=== PATIENT | female | born 1985 | race Caucasian/White ===

== ENCOUNTER 2016-07-07 05:18 | Inpatient (IN) | payer MEDICAID ==
[~2016-07-07] VITALS: Ht 154.9 cm; Wt 100.8 kg
[~2016-07-07 05:18] MED LIST: PRENAT PO
[2016-07-07 05:23] VITALS: Ht 154.9 cm; Wt 100.8 kg
[2016-07-07 05:24] VITALS: BP 140/73; PULSE 55; RESP 20
[2016-07-07] MEDS ORDERED: LACTATED RINGER'S 1,000 ML IV SCH (05:39)
[2016-07-07] MEDS ORDERED: BUTORPHANOL 2 MG INJ IV PRN (06:00)
[2016-07-07] MEDS ORDERED: LIDOCAINE 1% (MPF) 30 ML INJ INJ PRN (06:00)
[2016-07-07] MEDS ORDERED: METHYLERGONOVINE 0.2 MG INJ IM PRN ×2 (06:00→19:30)
[2016-07-07] MEDS ORDERED: OXYTOCIN 30 UNITS/LR 500 ML IV PRN ×2 (06:00→19:30)
[2016-07-07] MEDS ORDERED: CARBOPROST 250 MCG INJ IM PRN ×2 (06:00→19:30)
[2016-07-07] MEDS ORDERED: MISOPROSTOL 200 MCG TAB PR PRN ×2 (06:00→19:30)
[2016-07-07] MEDS ORDERED: LACTATED RINGER'S 1,000 ML IV PRN (06:00)
[2016-07-07] MEDS ORDERED: OXYTOCIN 30 UNITS/LR 500 ML IV SCH ×2 (06:00)
[2016-07-07] MEDS ORDERED: AMPICILLIN 2 GM/NS (PMX) 100 ML IV ONE (06:00)
--- NOTE | 2016-07-07 06:02 | TRIAGE ---
OB Triage Datetime Report Generated by CPN: 07/07/2016 06:02 Datetime: 07/07/2016 05:54 Labor Evaluation Frequency: 1-4.5 Monitor Mode: External Duration (sec)2399: 40-80 Quality: Mild Pattern: Normal: <= 5 Contractions in 10 Minutes Resting Tone Wedron: Relaxed Heart Rate FHR Baseline Rate: 135 Monitor Mode: External US Variability: Moderate 6-25 bpm Accelerations: 15X15 Decelerations: None Category: Category I Datetime: 07/07/2016 05:49 Time of Arrival: 07/07/2016 04:59 EGA: 39.4 Arrived By: Ambulatory Arrived From: Home Chief Complaint: UC'S AND SROM Movement: Present Contractions: Occasional Time Contractions Began: 07/07/2016 03:10 Contractions: Q10MIN Rupture of Membranes: Ruptured Vaginal Bleeding: None Vaginal Discharge: Denies Recent Sexual Intercouse: Denies Abdominal Trauma: Not Applicable Patient Complaints: Contractions Time Provider Notified: 07/07/2016 05:33 Provider Notified: BELA Initial Plan: EFM, STERILE SPEC, NITRAZINE, ROM+, Datetime: 07/07/2016 05:20 Stage of : OB Triage Assessment Type: Triage Maternal Assessment Level of Consciousness: Fully Conscious DTR's/Clonus: DTRs 2+; No Clonus Headache: Denies Blurred Vision: No Respiratory Effort: Unlabored; Regular Rhythm; Equal Expansion Breath Sounds, Left: Clear and Equal Breath Sounds, Right: Clear and Equal Nausea/Vomiting: Denies RUQ Epigastric Pain: Denies Facial Edema: None Fall Risk Assessment History of Falling: (0) No Secondary Diagnosis: (0) No Ambulatory Aid: (0) Bedrest/Nurse Assist IV Therapy: (0) No Gait: (0) Normal/Bedrest/Immobile Mental Status: (0) Oriented to Own Ability Fall Score: 0 Fall Risk Score Definition: No Risk: No action required Vaginal Exam Dilatation (cms): 3.0 Effacement (%): 80 Station: -2 Exam By: THOMAS Rae Cervix, Consistency: Soft Cervix, Position: Midposition Datetime: 07/07/2016 05:18 Stage of : OB Triage Membrane Status: Ruptured Membranes Ruptured Date/Time: 07/07/2016 03:10 Membranes Rupture Method: Spontaneous Amniotic Fluid Color: Clear Amniotic Fluid Amount: Small Amniotic Fluid Odor: Normal Vaginal Bleeding: None Pool: Positive Nitrazine: Positive ROM Test Kit: Collected Datetime: 07/07/2016 05:16 Stage of : OB Triage Temperature Route: Oral Pain Assessment Pain Scale: 4 Pain Presence: Intermittent Pain Type: Cramping; Contraction Pain Location: Abdomen; Back Pain Relief Measures: Comfort Measures Datetime: 07/07/2016 05:12 Stage of : OB Triage Monitor Mode: External Contraction Comments: Wedron applied Heart Rate FHR Baseline Rate: 150 Monitor Mode: External US Comments: EFM applied Datetime: 04/27/2016 19:40 Fall Score: 0 Fall Risk Score Definition: No Risk: No action required Datetime: 04/27/2016 15:29 Fall Score: 0 Fall Risk Score Definition: No Risk: No action required Datetime: 04/27/2016 15:28 EGA: 29.3
[2016-07-07 07:46] LABS: BASOPHILS % 0.4 % (0.0-2.0); EOSINOPHILS % 0.3 % (0.0-7.0); HEMATOCRIT 40.8 % (37.0-47.0); HEMOGLOBIN 13.8 g/dl (12.0-16.0); LYMPHOCYTES # 1.5 10^3/ul (0.8-2.9); LYMPHOCYTES % 19.3 % (15.0-51.0); MEAN CORPUSCULAR HGB CONC 33.9 g/dl (32.0-37.0); MEAN CORPUSCULAR VOLUME 91.5 fl (82.0-101.0); MONOCYTE # 0.6 10^3/ul (0.3-0.9); NEUTROPHIL # 5.5 10^3/ul (1.6-7.5); PLATELET COUNT 191 10^3/UL (140-440); RED BLOOD COUNT 4.46 10^6/ul (4.20-5.40); RED CELL DISTRIBUTION WIDTH 13.8 % (11.5-14.5); UNCORRECTED WBC 7.7 10^3/ul (4.8-10.8); WHITE BLOOD COUNT 7.7 10^3/ul (4.8-10.8)
[2016-07-07 07:52] LABS: CONDITION 1
[2016-07-07 08:05] LABS: INR 0.82; PROTIME 11.3 Sec (12.2-14.2); PT RATIO 0.9
[2016-07-07 08:06] LABS: PARTIAL THROMBOPLASTIN TIME 27.5 Sec (25.0-35.0)
[2016-07-07] MEDS ORDERED: AMPICILLIN 1 GM/NS (PMX) 50 ML IV SCH (10:00)
[2016-07-07] MEDS ORDERED: FENTAnyl 50 MCG/ML VIAL ONE (17:05)
[2016-07-07] MEDS ORDERED: PROPOFOL 20 ML ONE ×2 (17:05→17:28)
[2016-07-07] MEDS ORDERED: DIPHENHYDRAMINE 50 MG INJ IV PRN ×2 (18:00→19:30)
[2016-07-07] MEDS ORDERED: ONDANSETRON 4 MG INJ IV PRN ×2 (18:00→19:30)
[2016-07-07] MEDS ORDERED: HYDROmorphONE (0.2 MG/ML) 10ML SYG IV PRN ×3 (18:00)
[2016-07-07] MEDS ORDERED: OXYCODONE/ACETAMINOPHEN (5/325) TAB PO PRN ×2 (18:00)
[2016-07-07 18:22] LABS: BASOPHILS % 0.1 % (0.0-2.0); HEMATOCRIT 34.5 % (37.0-47.0); HEMOGLOBIN 11.9 g/dl (12.0-16.0); LYMPHOCYTES # 0.4 10^3/ul (0.8-2.9); LYMPHOCYTES % 2.7 % (15.0-51.0); MEAN CORPUSCULAR HEMOGLOBIN 31.2 pg (29.0-33.0); MEAN CORPUSCULAR HGB CONC 34.3 g/dl (32.0-37.0); MEAN CORPUSCULAR VOLUME 90.8 fl (82.0-101.0); MEAN PLATELET VOLUME 11.8 fl (7.4-10.4); MONOCYTE # 0.6 10^3/ul (0.3-0.9); MONOCYTES % 3.7 % (0.0-11.0); NEUTROPHIL # 14.7 10^3/ul (1.6-7.5); NEUTROPHILS % 93.5 % (39.0-77.0); PLATELET COUNT 163 10^3/UL (140-440); RED CELL DISTRIBUTION WIDTH 14.1 % (11.5-14.5); UNCORRECTED WBC 15.7 10^3/ul (4.8-10.8); WHITE BLOOD COUNT 15.7 10^3/ul (4.8-10.8)
[2016-07-07 18:24] LABS: CONDITION 1; LH ANALYZER COMMENTS 1; SUSPECT 1
--- NOTE | 2016-07-07 18:54 | LDN ---
Date/Time of Note Date/Time of Note DATE: 07/07/16 TIME: 18:50 Delivery Summary Pt pushed without anesthesia to an of a liveborn female weighing 3670g with Apgars of 9 and 9 at 1 and 5 min respectively. Easy delivery of the head followed by the anterior and posterior shoulders and the remainder of the body. The was vigorous and placed on mother's abdomen and bulb suctioned. Cord clamping was delayed. The pt received standard IV Pitocin. The cord was doubly clamped and cut. Cord blood was collected. An intact 3VC placenta delivered spontaneously. Fundus was noted to be firm. Inspection of the vagina and perineum revealed an extensive R vaginal laceration involving the R labia and the R lateral vaginal wall in addition to a 2nd degree perineal laceration. Given the extent of the R vaginal wall laceration and poor lighting and pt pain control in the LDR, the decision was made to proceed to the OR for repair. Vagina was packed with lap sponge for transfer. Anesthesia and Nursing teams were notified. See Operative Note. EBL 300ml. Placenta Delivered: Spontaneously Meconium: none Perineum intact?: No Perineal laceration: 2 Anesthesia type: None Estimated blood loss: 300 Sponge & Needle done & correct: Yes All needle counts correct: Yes Any foreign bodies felt in the: No Problems: Infant Delivery Information Sex Infant Sex: female Apgars 1 Minute: 9 5 Minute: 9 Suctioning Nose & mouth suctioned at gorge: No Delee suction performed: No Umbilical Cord Umbilical cord with: 3 Vessels Cord presentations: no nuchal cord Cord Blood was obtained: Yes Mother & Baby Disposition Disposition Mom & Baby to Maternity; Good: Yes (following repair of lacerations in the OR) Baby to NICU: No JANET DEL VALLE MD Jul 07, 2016 18:53
--- NOTE | 2016-07-07 19:10 | OPR ---
Operative Report Planned Procedure Free Text/Dictation Pt was taken to the OR with an IV in place following obtaining written consent for the procedure. Pt received IV Propofol for conscious sedation for repair. The patient was positioned in dorsal lithotomy position, the lap sponge was removed from the vagina and a walden catheter was inserted under sterile conditions. Inspection of the vagina and perineum confirmed a R deep sulcal laceration with extension to the base of the R labia. A full length R labial laceration and a second degree perineal laceration were noted. After adequate anesthesia had been administered, the sulcal tear was first repaired using 2-0 Chromic and Vicryl suture in the standard fashion. Hemostasis was obtained. The R labial laceration was then repaired with 3-0 Vicryl suture and finally the 2nd degree laceration was repaired with 3-0 Chromic suture. A rectal exam was performed following the repairs and no suture was palpated and no defect was appreciated. Brisk vaginal bleeding was noted to be coming from the cervix. The fundus remained firm. A bimanual exam revealed an atonic CAT with clots. The clots were evacuated and pt received Methergine 200mcg IM x1 with improvement in bleeding. Once hemostasis from all surgical beds was confirmed and no hematoma formation was palpated or visualized, the vagina was packed with vaginal packing x1 which will remain in situ. The walden also will remain in situ until removal of the vaginal packing. The patient was returned to dorsal supine position. The patient tolerated the procedure well and was taken to the LDR for recovery. EBL in OR 350ml. Total EBL for delivery and repair 650ml. UOP 275ml clear urine. IVF 1L Procedure date Jul 07, 2016 Procedure(s) Vaginal Laceration Repair Performed by: JANET DEL VALLE MD Anesthesiologist: GRACIE MUÑOZ MD Pre-procedure diagnosis 1) S/p without anesthesia 2) Extensive Laceration of the Right Vaginal Wall Anesthesia Type: MAC Post-Procedure Findings: R deep sulcal laceration, R labial laceration, 2nd degree perineal laceration Specimen removed: No Complications: None Pt Condition post procedure: stable Disposition: other (LDR) Physician Certification I, the undersigned physician, hereby certify that I have discussed the procedure described in this consent form with this patient (or the patient's legal used equipment sales representative), including: * The risk and benefits of the procedure; * Any adverse reactions that may reasonably be expected to occur; * Any alternative efficacious methods of treatment which may be medically viable ; * The potential problems that may occur during recuperation; I further certify that the patient/legally responsible person was encouraged to ask question and that all questions were answered. JANET DEL VALLE MD Jul 07, 2016 19:04
--- NOTE | 2016-07-07 19:15 | RADRPT ---
PROCEDURE: US OB. CLINICAL INDICATION: . Contractions. Labor. TECHNIQUE: Multiple transabdominal sonographic images of the pelvis were obtained. COMPARISON: 04/27/2016. FINDINGS: There is a single live intrauterine in cephalic presentation with heart motion of 12 9 beats per minute. Amniotic fluid amount appears lobe. Measurements were made in order to determine age. The results are as follows: BPD = * HC = * AC = 35.68 cm, 39 weeks 4 days FL = 7.43 cm, 38 weeks 0 days * cannot be assessed due to positioning. EFW: 3705 g, 8 pounds 3 ounces, 66.5% IMPRESSION: Single live intrauterine in cephalic presentation measuring 38-week 6 days using current u ltrasound measurements with an estimated date of delivery of 07/15/2016. Estimated weight, as above. RPTAT: PP .Dorys Snow MD, MD Date Time Electronically viewed and signed by .Dorys Snow MD, on 07/07/2016 19:15 .T/
[2016-07-07] MEDS ORDERED: LANOLIN 7 GM TUBE TOP PRN (19:30)
[2016-07-07] MEDS ORDERED: BENZOCAINE 20% 56 ML SPRAY TOP PRN (19:30)
[2016-07-07] MEDS ORDERED: ACETAMINOPHEN 325 MG TAB PO PRN (19:30)
[2016-07-07] MEDS ORDERED: DIBUCAINE 1% 30 GM OINT PR PRN (19:30)
[2016-07-07] MEDS ORDERED: SENNA/DOCUSATE NA (8.6MG/50MG) TAB PO PRN (19:30)
[2016-07-07] MEDS: LACTATED RINGER'S 1,000 ML IV* SCH (19:38)
[2016-07-07] MEDS ORDERED: ACETAMINOPHEN/CODEINE #3 TAB PO PRN (20:00)
[2016-07-07 20:45] VITALS: BP 114/60; PULSE 82; RESP 20
[2016-07-07 21:15] VITALS: BP 116/66; PULSE 82; RESP 20
[2016-07-08] VITALS: BP 121/66; PULSE 92; RESP 20
[2016-07-08] MEDS: IBUPROFEN 600 MG TAB PO SCH ×4 (00:21→18:00)
[2016-07-08 04:00] VITALS: BP 99/60; PULSE 98; RESP 20
[2016-07-08] MEDS: LACTATED RINGER'S 1,000 ML IV* SCH (05:00)
[2016-07-08 07:30] VITALS: BP 88/53; PULSE 88; RESP 20
--- NOTE | 2016-07-08 07:45 | QN ---
Documentation Comment Vaginal packing removed. Minimal bleeding. Pena to be d/c'd this morning. JANET DEL VALLE MD Jul 08, 2016 07:45
[2016-07-08 08:21] LABS: BASOPHILS % 0.3 % (0.0-2.0); EOSINOPHILS % 0.1 % (0.0-7.0); HEMATOCRIT 27.6 % (37.0-47.0); HEMOGLOBIN 9.4 g/dl (12.0-16.0); LYMPHOCYTES # 1.5 10^3/ul (0.8-2.9); LYMPHOCYTES % 12.1 % (15.0-51.0); MEAN CORPUSCULAR HEMOGLOBIN 31.6 pg (29.0-33.0); MEAN CORPUSCULAR HGB CONC 34.1 g/dl (32.0-37.0); MEAN CORPUSCULAR VOLUME 92.7 fl (82.0-101.0); MEAN PLATELET VOLUME 11.3 fl (7.4-10.4); MONOCYTE # 1.1 10^3/ul (0.3-0.9); MONOCYTES % 9.1 % (0.0-11.0); NEUTROPHIL # 9.8 10^3/ul (1.6-7.5); NEUTROPHILS % 78.4 % (39.0-77.0); PLATELET COUNT 160 10^3/UL (140-440); RED BLOOD COUNT 2.98 10^6/ul (4.20-5.40); RED CELL DISTRIBUTION WIDTH 14.1 % (11.5-14.5); UNCORRECTED WBC 12.5 10^3/ul (4.8-10.8); WHITE BLOOD COUNT 12.5 10^3/ul (4.8-10.8)
[2016-07-08 08:29] LABS: CONDITION 1
--- NOTE | 2016-07-08 12:03 | PN ---
Date/Time of Note Date/Time of Note DATE: 07/08/16 TIME: 12:02 OB Subjective Subjective Subjective Post normal vaginal delivery day 1 Vital sign is stable afebrile abdomen soft uterus firm lochia normal extremity normal Laboratory Tests Test 07/07/16 17:50 07/08/16 06:55 Basophils # 0.010^3/ul 0.010^3/ul Basophils % 0.1% 0.3% Blood Morphology Comment Eosinophils # 0.010^3/ul 0.010^3/ul Eosinophils % 0.0% 0.1% Hematocrit 34.5% 27.6% Hemoglobin 11.9g/dl 9.4g/dl Lymphocytes # 0.410^3/ul 1.510^3/ul Lymphocytes % 2.7% 12.1% Mean Corpuscular Hemoglobin 31.2pg 31.6pg Mean Corpuscular Hemoglobin Concent 34.3g/dl 34.1g/dl Mean Corpuscular Volume 90.8fl 92.7fl Mean Platelet Volume 11.8fl 11.3fl Monocytes # 0.610^3/ul 1.110^3/ul Monocytes % 3.7% 9.1% Neutrophils # 14.710^3/ul 9.810^3/ul Neutrophils % 93.5% 78.4% Nucleated Red Blood Cells # 0.010^3/ul 0.010^3/ul Nucleated Red Blood Cells % 0.0/100WBC 0.0/100WBC Platelet Count 23744^3/UL 48645^3/UL Red Blood Count 3.8010^6/ul 2.9810^6/ul Red Cell Distribution Width 14.1% 14.1% White Blood Count 15.710^3/ul 12.510^3/ul Current Medications Medications (Trade) Dose Ordered Sig/Gilmar Route PRN Reason Start Time Stop Time Status Last Admin Dose Admin Lactated Ringer's 1,000 ml @ 125 mls/hr Q8H IV 07/07/16 05:39 07/07/16 19:15 DC 07/07/16 06:20 Ampicillin 100 ml @ 100 mls/hr ONCE ONCE IV 07/07/16 06:00 07/07/16 06:59 DC 07/07/16 06:19 Ampicillin (Ampicillin 1 Gm/ NS (Pmx)) 50 ml @ 100 mls/hr Q4H IV 07/07/16 10:00 07/07/16 19:15 DC Butorphanol Tartrate (Stadol) 2 mg Q2H PRN IV PAIN 07/07/16 06:00 07/07/16 19:15 DC 07/07/16 08:38 Lidocaine 30 ml 30 ml ONCE PRN INJ EPISIOTOMY/TEARING 07/07/16 06:00 07/07/16 19:15 DC Oxytocin/Lactated Ringer's 500 ml @ 125 mls/hr ONCE -MAY REPEAT X1 IV 07/07/16 06:00 07/07/16 19:15 DC 07/07/16 18:47 Oxytocin/Lactated Ringer's 500 ml @ 125 mls/hr ONCE IV 07/07/16 06:00 07/07/16 19:15 DC Lactated Ringer's 1,000 ml @ 2,000 mls/hr Q30M PRN IV PRE-EPIDURAL BOLUS 07/07/16 06:00 07/07/16 19:15 DC Oxytocin/Lactated Ringer's 500 ml @ 0 mls/hr ONCE PRN IV For Hemorrhage Management 07/07/16 06:00 07/07/16 19:15 DC Methylergonovine Maleate (Methergine) 0.2 mg ONCE PRN IM VAGINAL BLEEDING 07/07/16 06:00 07/07/16 19:15 DC 07/07/16 18:02 Carboprost Tromethamine (Hemabate) 250 mcg ONCE PRN IM VAGINAL BLEEDING 07/07/16 06:00 07/07/16 19:15 DC Misoprostol 1000 mcg 1,000 mcg ONCE PRN HI VAGINAL BLEEDING 07/07/16 06:00 07/07/16 19:15 DC Propofol (Diprivan) 20 ml @ ud STK-MED ONCE .ROUTE 07/07/16 17:05 07/07/16 17:06 DC Fentanyl 100 mcg 100 mcg STK-MED ONCE .ROUTE 07/07/16 17:05 07/07/16 17:06 DC Propofol 20 ml @ ud STK-MED ONCE .ROUTE 07/07/16 17:28 07/07/16 17:29 DC Fentanyl (Sublimaze) 5 ml @ ud STK-MED ONCE .ROUTE 07/07/16 17:28 07/07/16 17:29 DC Hydromorphone HCl (Dilaudid (Rec)) 0.2 mg PACU ORDER PRN IV MILD PAIN LEVEL 1-3 07/07/16 18:00 07/07/16 19:15 DC Hydromorphone HCl (Dilaudid (Rec)) 0.4 mg PACU ORDER PRN IV MODERATE PAIN LEVEL 4-6 07/07/16 18:00 07/07/16 19:15 DC Hydromorphone HCl (Dilaudid (Rec)) 0.6 mg PACU ORDER PRN IV SEVERE PAIN LEVEL 7-10 07/07/16 18:00 07/07/16 19:15 DC Oxycodone/ Acetaminophen (Percocet (5/ 325)) 1 tab PACU ORDER PRN PO PAIN LEVEL 1-5 07/07/16 18:00 07/07/16 19:15 DC Oxycodone/ Acetaminophen (Percocet (5/ 325)) 2 tab PACU ORDER PRN PO PAIN LEVEL 6-10 07/07/16 18:00 07/07/16 19:15 DC Ondansetron HCl (Zofran Inj) 4 mg PACU ORDER PRN IV NAUSEA AND/OR VOMITING 07/07/16 18:00 07/07/16 19:15 DC Diphenhydramine HCl 25 mg 25 mg PACU ORDER PRN IV PRURITUS 07/07/16 18:00 07/07/16 19:15 DC Lactated Ringer's (Lr) 1,000 ml @ 125 mls/hr Q8H IV* 07/07/16 19:09 07/08/16 05:00 Ibuprofen (Motrin) 600 mg Q6 PO 07/08/16 00:00 07/08/16 06:58 Ondansetron HCl (Zofran Inj) 4 mg Q6H PRN IV NAUSEA AND/OR VOMITING 07/07/16 19:30 07/07/16 19:39 Diphenhydramine HCl (Benadryl) 25 mg Q6H PRN IV PRURITUS 07/07/16 19:30 Senna/Docusate Sodium (Senokot-S) 1 tab BID PRN PO CONSTIPATION 07/07/16 19:30 07/08/16 00:21 Benzocaine (Dermoplast Clarence) 1 spray BEDSIDE MEDICATION PRN TOP HEMORRHOID/EPISIOTMY PAIN 07/07/16 19:30 07/08/16 00:21 Dibucaine (Nupercainal) 1 applic BEDSIDE MEDICATION PRN HI HEMORRHOID/EPISIOTMY PAIN 07/07/16 19:30 07/08/16 00:21 Lanolin (Scy-R-Ccfbcr) 1 applic BEDSIDE MEDICATION PRN TOP BEDSIDE FOR JAC TO NIPPLES 07/07/16 19:30 07/08/16 00:21 Diphtheria/ Tetanus/Acell Pertussis (Adacel) 0.5 ml ONCE ONCE IM* 07/09/16 09:00 07/09/16 09:01 Acetaminophen 650 mg 650 mg Q4H PRN PO ELEVATED TEMPERATURE 07/07/16 19:30 Oxytocin/Lactated Ringer's 500 ml @ 0 mls/hr ONCE PRN IV For Hemorrhage Management 07/07/16 19:30 07/07/16 19:20 Methylergonovine Maleate (Methergine) 0.2 mg ONCE PRN IM VAGINAL BLEEDING 07/07/16 19:30 Carboprost Tromethamine (Hemabate) 250 mcg ONCE PRN IM VAGINAL BLEEDING 07/07/16 19:30 Misoprostol (Cytotec) 1,000 mcg ONCE PRN HI VAGINAL BLEEDING 07/07/16 19:30 Acetaminophen/ Codeine Phosphate (Tylenol No.3) 1 tab Q4H PRN PO PAIN 07/07/16 20:00 07/07/16 20:03 Influenza Virus Vaccine (Fluzone) 0.5 ml ONCE ONCE IM* 07/09/16 09:00 07/09/16 09:01 SANYA BERMAN MD Jul 08, 2016 12:03
[2016-07-08 16:00] VITALS: BP 106/58; PULSE 84
[2016-07-08 20:00] VITALS: BP 118/73; PULSE 80; RESP 18
[2016-07-09 04:00] VITALS: BP 108/70; PULSE 84; RESP 18
[2016-07-09] MEDS: IBUPROFEN 600 MG TAB PO SCH ×3 (05:34→12:37)
--- NOTE | 2016-07-09 07:19 | QN ---
Documentation Comment Laborist Vaginal exam performed this AM to assess laceration repair. Repairs intact, no e /o hematoma in regions of sulcal or 2nd degree lacerations. Perineal rest precautions reviewed. JANET DEL VALLE MD Jul 09, 2016 07:19
[2016-07-09 07:46] LABS: BASOPHILS % 0.2 % (0.0-2.0); EOSINOPHILS # 0.1 10^3/ul (0.0-0.5); EOSINOPHILS % 0.5 % (0.0-7.0); HEMATOCRIT 26.1 % (37.0-47.0); HEMOGLOBIN 8.8 g/dl (12.0-16.0); LYMPHOCYTES # 1.6 10^3/ul (0.8-2.9); LYMPHOCYTES % 15.5 % (15.0-51.0); MEAN CORPUSCULAR HEMOGLOBIN 31.5 pg (29.0-33.0); MEAN CORPUSCULAR HGB CONC 33.6 g/dl (32.0-37.0); MEAN CORPUSCULAR VOLUME 93.9 fl (82.0-101.0); MEAN PLATELET VOLUME 11.5 fl (7.4-10.4); MONOCYTE # 0.7 10^3/ul (0.3-0.9); MONOCYTES % 6.7 % (0.0-11.0); NEUTROPHIL # 8.1 10^3/ul (1.6-7.5); NEUTROPHILS % 77.1 % (39.0-77.0); PLATELET COUNT 165 10^3/UL (140-440); RED BLOOD COUNT 2.78 10^6/ul (4.20-5.40); RED CELL DISTRIBUTION WIDTH 14.5 % (11.5-14.5); UNCORRECTED WBC 10.5 10^3/ul (4.8-10.8); WHITE BLOOD COUNT 10.5 10^3/ul (4.8-10.8)
[2016-07-09 08:00] VITALS: BP 126/70; PULSE 79; RESP 20
[2016-07-09 08:16] LABS: CONDITION 1; LH ANALYZER COMMENTS 1
[2016-07-09] MEDS ORDERED: DIPHTH/TET/ACEL PERTUSS (ADULT) 0.5 ML VIAL IM* ONE (09:00)
[2016-07-09] MEDS ORDERED: INFLUENZA VIRUS VACCINE 0.5 ML (DISPENSING) IM* ONE (09:00)
--- NOTE | 2016-07-09 11:01 | PD.PPDC ---
[employer] TECHNICIAN Discharge Instruction Condition Patient Condition: Good Diet Diet: Resume Regular Diet Activity/Restrictions Activity: Normal Activity May Shower Restrictions: No Exercising No Lifting No Driving No Sexual Activity Nothing in the Vagina No Jaconita No Tampons, douche Follow-up Follow-up with Physician: 2, Week/Weeks Return to clinic for BRANCH CHIEF Instructions: Fever greater than 101 Chills Worsening abdominal pain Excessive Vaginal Bleeding More than 2 pads per hour Unable to tolerate diet SANYA BERMAN MD Jul 09, 2016 11:01
--- NOTE | 2016-07-09 11:03 | DS ---
Date/Time of Note Date/Time of Note DATE: 07/09/16 TIME: 11:02 Obstetrical Discharge Record Final Diagnosis Final Diagnosis: Term delivered Vaginal Delivery Obstetrical Delivery: Spontaneous Condition on Discharge Physical Assessment Last Vitals: Vital sign a stable afebrile abdomen soft uterus firm lochia normal cavity normal discharged home with follow-up instruction to be seen at the clinic in 2 weeks Voiding: Yes Bowel Movement: Yes Breast: Soft, non-tender, Filling Fundus: Firm Calf Tenderness: No Patient Condition: Good SANYA BERMAN MD Jul 09, 2016 11:03
== END 2016-07-09 13:10 | disposition home or self-care (01) | DRG 774 ==
LOC: OBT 05:18 → L-D 05:19 → OBT 05:55 → L-D 05:55 → PP1 20:44
PROVIDERS: ADMIT Obstetrics & Gynecology; ATTEND Obstetrics & Gynecology
PROC: 0UQG7ZZ Repair Vagina, Via Natural or Artificial Opening (ICD-10-PCS; 2016-07-07)
PROC: 0KQM0ZZ Repair Perineum Muscle, Open Approach (ICD-10-PCS; 2016-07-07)
PROC: 0UQMXZZ Repair Vulva, External Approach (ICD-10-PCS; 2016-07-07)
PROC: 10E0XZZ Delivery of Products of Conception, External Approach (ICD-10-PCS; principal; 2016-07-07 16:45)
DX: O70.1 Second degree perineal laceration during delivery (principal); O72.1 Other immediate postpartum hemorrhage; Z37.0 Single live birth; O71.4 Obstetric high vaginal laceration alone; Z3A.39 39 weeks gestation of pregnancy
CPT/HCPCS: 76815; 85025; 85610; 85730; 86592; 86850; 86885; 86900; 86901; 90686; 90715; G0463; J0290; J2210; J2405; J2590; J2790; J3010; J7120

== ENCOUNTER 2017-04-11 19:14 | Emergency (ER) | payer SELFPAY ==
[~2017-04-11] VITALS: Ht 165.1 cm; Wt 89.5 kg
[2017-04-11 19:27] VITALS: Ht 165.1 cm; Wt 89.5 kg
== END 2017-04-11 20:25 | disposition left against medical advice (07) ==
LOC: FTE 19:14
DX: Z53.21 Procedure and treatment not carried out due to patient leaving prior to being seen by health care provider (principal)

== ENCOUNTER 2018-05-31 18:26 | Emergency (ER) | END 2018-05-31 19:39 | disposition home or self-care (01) ==

== ENCOUNTER 2018-08-09 19:19 | Emergency (ER) | payer MEDICAID ==
[~2018-08-09] VITALS: Ht 162.6 cm; Wt 89.4 kg
[~2018-08-09 19:19] MED LIST changes: +D-ME473S2 PO; +IBUP-1542 PO; +OSEL75CA23 PO
[2018-08-09 19:23] VITALS: Ht 162.6 cm; Wt 89.4 kg
[2018-08-10] MEDS ORDERED: IBUPROFEN 800 MG TAB PO ONE
[2018-08-10] MEDS ORDERED: IBUP-1542 PO (00:50)
[2018-08-10] MEDS ORDERED: PENI500T PO (00:50)
--- NOTE | 2018-08-10 00:51 | ERD ---
ER Documentation Chief Complaint Chief Complaint ST and fever x 2 days HPI 33-year-old female previously healthy presenting with sore throat for the past 2 days with associated subjective fevers. She denies any associated neck stiffness, cough, runny nose. No sick contacts. Her pain is aching, 9 out of 10, and the bilateral throat, nonradiating, with no alleviating factors. Worse with swallowing. ROS All systems reviewed and are negative except as per history of present illness. Medications Home Meds Active Scripts Ibuprofen* (Motrin*) 600 Mg Tab, 600 MG PO Q6H PRN for PAIN AND OR ELEVATED TEMP, #30 TAB Prov:LUIS CARLOS BOBO MD 08/10/18 Penicillin V Potassium* (Penicillin V K*) 500 Mg Tab, 500 MG PO BID for 10 Days, TAB Prov:LUIS CARLOS BOBO MD 08/10/18 Oseltamivir Phosphate* (Tamiflu*) 75 Mg Capsule, 75 MG PO BID for 5 Days, CAP Prov:MATHIEU GUTIERREZ MD 05/31/18 Dextromethorphan Hb-Promethazine Hcl* (Promethazine DM* Syrup) 473 Ml Syrup, 5 ML PO Q6 PRN for COUGH for 5 Days, ML Prov:MATHIEU GUTIERREZ MD 05/31/18 Ibuprofen* (Motrin*) 600 Mg Tab, 600 MG PO Q6, #30 TAB Prov:MATHIEU GUTIERREZ MD 05/31/18 Reported Medications Multivit/Min/Fol Ac/Iron/Pren* ( S*) 1 Tab Tab, 1 TAB PO DAILY, TAB 04/27/16 Allergies Allergies: Coded Allergies: No Known Allergy (Unverified , 08/09/18) PMhx/Soc Medical and Surgical Hx: pt denies Medical Hx, pt denies Surgical Hx History of Surgery: No Hx Neurological Disorder: No Hx Respiratory Disorders: No Hx Cardiac Disorders: No Hx Psychiatric Problems: No Hx Alcohol Use: No Hx Substance Use: No Hx Tobacco Use: No Smoking Status: Never smoker FmHx Family History: No diabetes Physical Exam Vitals Vital Signs Date Temp Pulse Resp B/P (MAP) Pulse Ox O2 O2 Flow FiO2 Time Delivery Rate 08/10/18 98.9 99 20 120/80 98 Room Air 00:57 (93) 08/09/18 98.9 85 16 134/70 98 19:23 (91) Physical Exam INITIAL VITAL SIGNS: Reviewed by me GENERAL: Well appearing, non toxic, speaking in full sentences. HEENT: Atraumatic, Moist mucous membranes. Posterior oropharynx erythematous with enlarged tonsils bilaterally, symmetric. No exudates. No uvular deviation. No stridor. Normal phonation NECK: Supple. Cervical lymphadenopathy RESPIRATORY: No respiratory distress. Clear to auscultation bilaterally SKIN: Warm, dry. NEUROLOGIC: alert and awake. No facial asymmetry. Normal speech. Results 24 hrs Current Medications Medications Dose Sig/Gilmar Start Time Status Last (Trade) Ordered Route PRN Stop Time Admin Dose Reason Admin Ibuprofen 800 mg ONCE ONCE 08/10/18 DC 08/09/18 (Motrin) PO 00:00 23:43 08/10/18 00:01 Procedures/MDM Patient is presenting with sore throat and subjective fevers. Rapid strep was done and was positive for strep. She will be treated with ibuprofen here for her pain and prescription for penicillin and ibuprofen given. Return precautions discussed. Patient's blood pressure was elevated (>120/80) but appears stable without evidence of hypertension emergency or urgency. The patient was counseled about the risks of hypertension and urged to pursue outpatient monitoring and therapy within a week with their primary care physician. Departure Diagnosis: Primary Impression: Strep pharyngitis Condition: Stable Patient Instructions: Strep Throat LUIS CARLOS BOBO MD Aug 10, 2018 00:51
[2018-08-10 00:57] VITALS: BP 120/80; PULSE 99; RESP 20
== END 2018-08-10 00:58 | disposition home or self-care (01) ==
LOC: FTE 19:19
DX: J02.0 Streptococcal pharyngitis (principal)
CPT/HCPCS: 87070; 87880; Z7502; Z7610; 99283

== ENCOUNTER 2019-03-12 22:42 | Emergency (ER) | payer SELFPAY ==
[~2019-03-12] VITALS: Ht 157.5 cm; Wt 90.4 kg
[~2019-03-12 22:42] MED LIST changes: +AZIT250T PO; +PENI500T PO; +PROM5SYR2 PO
[2019-03-12 22:58] VITALS: BP 119/76; PULSE 72; RESP 20; Ht 157.5 cm; Wt 90.4 kg
== END 2019-03-13 05:41 | disposition home or self-care (01) ==
LOC: FTE 22:42
DX: J06.9 Acute upper respiratory infection, unspecified (principal)
CPT/HCPCS: 71045; 81025